=== PATIENT | female | born 1990 | race Caucasian/White ===

== ENCOUNTER 2017-02-15 10:28 | Emergency (ER) | payer MEDICAID ==
[~2017-02-15] VITALS: Ht 160 cm; Wt 83.0 kg
[2017-02-15] MEDS ORDERED: [UNRECOGNIZED DRUG - OTHER] (10:35)
[2017-02-15 13:58] VITALS: BP 105/68
== END 2017-02-15 14:48 | disposition home or self-care (01) ==
LOC: ER 10:28
DX: M79.605 Pain in left leg (principal); M54.5 Low back pain; Z88.0 Allergy status to penicillin
CPT/HCPCS: 81025; 93971; 99284

== ENCOUNTER 2017-09-07 14:49 | Emergency (ER) | payer MEDICAID, OTHER ==
[~2017-09-07] VITALS: Ht 157.5 cm; Wt 86.0 kg
[~2017-09-07 14:49] MED LIST: [UNRECOGNIZED DRUG - OTHER]
[2017-09-07] MEDS ORDERED: MAGNESIUM/ALUMINUM HYDROXIDE/SIMETHICONE 30ML UDC PO STA ×2 (23:07)
[2017-09-07] MEDS ORDERED: FAMOTIDINE 20MG/2ML VIAL IV STA (23:07)
[2017-09-07] MEDS ORDERED: SODIUM CHLORIDE 0.9% 1,000 ML IV ONE (23:07)
[2017-09-08 00:25] LABS: BASOPHILS % 0.9 % (0.0-2.0); EOSINOPHILS % 2.8 % (0.0-5.0); HEMATOCRIT. 37.1 % (36.0-48.0); HEMOGLOBIN. 12.4 g/dL (12.0-16.0); LYMPHOCYTES % 30.3 % (20.0-50.0); MEAN CORPUSCULAR HEMOGLOBIN 30.3 pg (28.0-32.0); MEAN CORPUSCULAR VOLUME 90.3 fL (81.0-99.0); MEAN PLATELET VOLUME 7.5 fl (7.4-10.4); MONOCYTES % 9.9 % (2.0-8.0); NEUTROPHILS % 56.1 % (40.0-76.0); PLATELET 341 x1000/uL (130-400); RED BLOOD CELL COUNT 4.11 mill/uL (4.2-5.4); RED CELL DISTRIBUTION WIDTH 13.5 % (11.6-14.6)
[2017-09-08 00:28] LABS: CHLORIDE 99 mEq/L (98-107); PROTHROMBIN TIME 10.7 sec (9.4-11.6)
[2017-09-08 00:38] LABS: B-HCG QUANTITATIVE < 1 mIU/mL (<3); CARBON DIOXIDE 33 mEq/L (21-32); ETHANOL BLOOD < 10 mg/dL
[2017-09-08 01:44] LABS: CLARITY URINE CLOUDY (CLEAR); COLOR URINE YELLOW (YELLOW); KETONES URINE TRACE (NEGATIVE); LEUKOCYTE ESTERASE URINE NEGATIVE (NEGATIVE); NITRITE URINE NEGATIVE (NEGATIVE); OCCULT BLOOD URINE NEGATIVE (NEGATIVE); PH URINE 6.5 (4.5-8.0); PROTEIN URINE NEGATIVE (NEGATIVE)
[2017-09-08 01:50] VITALS: BP 111/50
[2017-09-08 01:54] LABS: *AMPHETAMINES SCREEN URINE NEGATIVE (NEGATIVE); *BARBITURATES SCREEN URINE NEGATIVE (NEGATIVE); *BENZODIAZEPINES SCREEN URINE NEGATIVE (NEGATIVE); *COCAINE SCREEN URINE NEGATIVE (NEGATIVE); CANNABINOID URINE SCREEN NEGATIVE (NEGATIVE); METHADONE URINE SCREEN NEGATIVE (NEGATIVE); OPIATES URINE SCREEN NEGATIVE (NEGATIVE); PHENCYCLIDINE URINE SCREEN NEGATIVE (NEGATIVE)
== END 2017-09-08 02:00 | disposition home or self-care (01) ==
LOC: ER 15:28
DX: K82.8 Other specified diseases of gallbladder (principal); R00.2 Palpitations; Z88.0 Allergy status to penicillin
CPT/HCPCS: 36415; 71045; 76700; 80053; 80305; 81001; 81025; 83690; 84702; 85025; 85610; 93005; 96361; 96374; 99285; G0482; J3490; J7030; Z7610

== ENCOUNTER 2019-07-06 02:29 | Emergency (ER) | payer BC, OTHER ==
[~2019-07-06] VITALS: Ht 157.5 cm; Wt 96.0 kg
[2019-07-06] MEDS ORDERED: KETOROLAC 30MG/ML VIAL IV STA (03:59)
[2019-07-06] MEDS ORDERED: SODIUM CHLORIDE 0.9% 1,000 ML IV ONE (03:59)
[2019-07-06 04:40] LABS: BASOPHILS % 0.4 % (0.0-2.0); EOSINOPHILS % 1.2 % (0.0-5.0); HEMATOCRIT. 37.2 % (36.0-48.0); HEMOGLOBIN. 12.6 g/dL (12.0-16.0); LYMPHOCYTES % 20.9 % (20.0-50.0); MEAN CORPUSCULAR HEMOGLOBIN 30.3 pg (28.0-32.0); MEAN CORPUSCULAR VOLUME 89.4 fL (81.0-99.0); MEAN PLATELET VOLUME 7.3 fl (7.4-10.4); NEUTROPHILS % 69.5 % (40.0-76.0); PLATELET 379 x1000/uL (130-400); RED BLOOD CELL COUNT 4.16 mill/uL (4.2-5.4); RED CELL DISTRIBUTION WIDTH 14.1 % (11.6-14.6)
[2019-07-06 04:47] LABS: CHLORIDE 97 mEq/L (98-107)
[2019-07-06 05:45] LABS: CLARITY URINE TURBID (CLEAR); COLOR URINE YELLOW (YELLOW); KETONES URINE TRACE (NEGATIVE); LEUKOCYTE ESTERASE URINE TRACE (NEGATIVE); NITRITE URINE NEGATIVE (NEGATIVE); OCCULT BLOOD URINE TRACE (NEGATIVE); PH URINE >=9.0 (4.5-8.0); PROTEIN URINE 1+ (NEGATIVE); SPECIFIC GRAVITY URINE 1.015 (1.005-1.030)
[2019-07-06 06:29] VITALS: BP 123/80
== END 2019-07-06 06:30 | disposition home or self-care (01) ==
LOC: ER 02:29
DX: R10.84 Generalized abdominal pain (principal); N39.0 Urinary tract infection, site not specified; K59.00 Constipation, unspecified; M43.07 Spondylolysis, lumbosacral region
CPT/HCPCS: 36415; 74176; 80053; 81003; 81025; 83690; 85025; 96374; 99284; J1885; J7030; Z7610

== ENCOUNTER 2020-07-11 11:08 | Emergency (ER) | payer BC, MEDICAID ==
[~2020-07-11] VITALS: Ht 157.5 cm; Wt 117.0 kg
[2020-07-11 11:53] VITALS: BP 126/84
[2020-07-11] MEDS ORDERED: NITR-87 PO (14:05)
[2020-07-11] MEDS ORDERED: PREN1TAB23 PO (14:07)
== END 2020-07-11 13:01 | disposition home or self-care (01) ==
LOC: ER 11:20
DX: O13.3 Gestational [pregnancy-induced] hypertension without significant proteinuria, third trimester (principal); Z3A.38 38 weeks gestation of pregnancy
CPT/HCPCS: 71045; 99283

== ENCOUNTER 2020-07-11 13:02 | Observation (INO) | payer MEDICAID ==
[~2020-07-11] VITALS: Ht 157.5 cm; Wt 117.5 kg
[2020-07-11] MEDS ORDERED: NITR-87 PO (14:05)
[2020-07-11] MEDS ORDERED: PREN1TAB23 PO (14:07)
== END 2020-07-11 14:55 | disposition home or self-care (01) ==
LOC: 8 EST LDRP 13:02
PROVIDERS: ADMIT Obstetrics & Gynecology; ATTEND Obstetrics & Gynecology
DX: O13.3 Gestational [pregnancy-induced] hypertension without significant proteinuria, third trimester (principal); Z3A.38 38 weeks gestation of pregnancy
CPT/HCPCS: 59025; G0378; 99281

== ENCOUNTER 2020-07-18 15:33 | Observation (INO) | payer MEDICAID ==
[~2020-07-18] VITALS: Ht 157.5 cm; Wt 118.8 kg
[~2020-07-18 15:33] MED LIST changes: +NITR-87 PO; +PREN1TAB23 PO; -[UNRECOGNIZED DRUG - OTHER]
[2020-07-18 17:38] LABS: CLARITY URINE CLEAR (CLEAR); COLOR URINE YELLOW (YELLOW); KETONES URINE NEGATIVE (NEGATIVE); LEUKOCYTE ESTERASE URINE TRACE (NEGATIVE); NITRITE URINE NEGATIVE (NEGATIVE); OCCULT BLOOD URINE NEGATIVE (NEGATIVE); PROTEIN URINE NEGATIVE (NEGATIVE); SPECIFIC GRAVITY URINE 1.015 (1.005-1.030); UROBILINOGEN URINE 0.2 E.U./dL (0.2-1.0)
[2020-07-18 18:02] LABS: BASOPHILS % 0.4 % (0.0-2.0); EOSINOPHILS % 0.9 % (0.0-5.0); HEMATOCRIT. 37.6 % (36.0-48.0); HEMOGLOBIN. 12.7 g/dL (12.0-16.0); MEAN CORPUSCULAR HEMOGLOBIN 29.4 pg (28.0-32.0); MEAN CORPUSCULAR VOLUME 87.2 fL (81.0-99.0); MEAN PLATELET VOLUME 8.1 fl (7.4-10.4); MONOCYTES % 8.3 % (2.0-8.0); NEUTROPHILS % 67.4 % (40.0-76.0); PLATELET 308 x1000/uL (130-400); RED BLOOD CELL COUNT 4.31 mill/uL (4.2-5.4); RED CELL DISTRIBUTION WIDTH 17.3 % (11.6-14.6)
[2020-07-18 18:12] LABS: INR 0.9; PARTIAL THROMBOPLASTIN TIME 28.8 sec (23.4-31.0); PROTHROMBIN TIME 9.8 sec (9.6-11.0)
[2020-07-18 18:20] LABS: CHLORIDE 105 mEq/L (98-107)
== END 2020-07-18 19:37 | disposition home or self-care (01) ==
LOC: 8 EST A/PP 15:33
PROVIDERS: ADMIT Obstetrics & Gynecology; ATTEND Obstetrics & Gynecology
DX: Z34.93 Encounter for supervision of normal pregnancy, unspecified, third trimester (principal); Z3A.39 39 weeks gestation of pregnancy; Z88.0 Allergy status to penicillin
CPT/HCPCS: 36415; 59025; 76805; 76818; 80053; 81003; 84550; 85025; 85384; 85610; 85730; 86592; 86762; G0378; 99281

== ENCOUNTER 2020-07-20 10:49 | Observation (INO) | payer MEDICAID ==
[~2020-07-20] VITALS: Ht 157.5 cm; Wt 82.6 kg
[2020-07-29] MEDS ORDERED: IBUP-2030 PO (06:58)
== END 2020-07-20 12:56 | disposition home or self-care (01) ==
LOC: 8 EST LDRP 10:49
PROVIDERS: ADMIT Obstetrics & Gynecology; ATTEND Obstetrics & Gynecology
DX: Z34.93 Encounter for supervision of normal pregnancy, unspecified, third trimester (principal); Z3A.39 39 weeks gestation of pregnancy
CPT/HCPCS: 59025; 76815; 76818; G0378

== ENCOUNTER 2020-07-25 12:38 | Observation (INO) | payer MEDICAID ==
[~2020-07-25] VITALS: Ht 152.4 cm; Wt 118.8 kg
[~2020-07-25 12:38] MED LIST changes: -NITR-87 PO
[2020-07-29] MEDS ORDERED: IBUP-2030 PO (06:58)
== END 2020-07-25 14:05 | disposition home or self-care (01) ==
LOC: 8 EST LDRP 12:38
PROVIDERS: ADMIT Obstetrics & Gynecology; ATTEND Obstetrics & Gynecology
DX: Z34.93 Encounter for supervision of normal pregnancy, unspecified, third trimester (principal); Z3A.40 40 weeks gestation of pregnancy
CPT/HCPCS: 59025; G0378; 99281

== ENCOUNTER 2023-07-04 16:08 | Emergency (ER) | payer MEDICAID, OTHER ==
[~2023-07-04] VITALS: Ht 157.5 cm; Wt 119.0 kg
[~2023-07-04 16:08] MED LIST changes: +IBUP-2030 PO; -PREN1TAB23 PO
[2023-07-04 16:20] VITALS: O2SAT 98
[2023-07-04] MEDS ORDERED: IBUPROFEN 600MG TABLET PO ONE (16:30)
[2023-07-04] MEDS ORDERED: METHOCARBAMOL 500MG TABLET PO ONE (17:15)
[2023-07-04] MEDS ORDERED: METH-653 MT (17:51)
[2023-07-04] MEDS ORDERED: IBUP-2029 MT (17:51)
[2023-07-04 19:19] VITALS: BP 124/78; PULSE 77; RESP 19; TEMP 97.7
== END 2023-07-04 19:20 | disposition home or self-care (01) ==
LOC: ER 16:08
DX: S33.5XXA Sprain of ligaments of lumbar spine, initial encounter (principal); E78.00 Pure hypercholesterolemia, unspecified; I10 Essential (primary) hypertension; Z88.0 Allergy status to penicillin; V98.8XXA Other specified transport accidents, initial encounter; Y93.89 Activity, other specified; Y92.89 Other specified places as the place of occurrence of the external cause; Y99.8 Other external cause status
CPT/HCPCS: 71046; 99283